=== PATIENT | female | born 1925 | race Caucasian/White ===

== ENCOUNTER → 2016-05-14 | Outpatient (CLI) | payer OTHER ==
[~2016-05-14] MED LIST: ALBUTEROL17 GM NEB; ALLOPURINOL300 MG; ALPRAZOLAM PO; ATROVENT HFA12.9 GM INH; B12 HEALTH1000 MCG/1 PO; BOSWELLIA; CINNAMON3.7 ML PO; COMBIVENT MININEB INH; COMBIVENT U/D3 M1; COQ1050 MG PO; COUMADIN PO; COUMADIN10 MG; COZAAR100 MG PO; D MANNOSE PO; D-RIBOSE1 GM; ENTOCORT EC3 MG PO; GINGER ROOT550 M1 PO; K-DUR10 MEQ PO; KCL PO; KLOR-CON PO; L-CARNITINE500 M1 PO; LASIX PO; LASIX20 MG; LASIX20 MG PO; LESCOL PO; LEVOTHYROXINE100 MCG; LOPRESSOR PO; LOSARTAN POTAS100 MG; MELATONIN1 MG PO; METFORMIN PO; NAC600 MG PO; NATTOKINASE PO; NORVASC PO; SINGULAIR PO; SLIPPERY ELM BARK PO; SPIRIVA18 MCG INH; SYMBICORT80; SYNTHROID PO; SYNTHROID88 MCG PO; ULTRA FLORA PL1 EACH; VASOTEC PO; VITAMIN C500 M5 PO; [UNRECOGNIZED DRUG - OTHER]; [UNRECOGNIZED DRUG - OTHER]; [UNRECOGNIZED DRUG - OTHER]; [UNRECOGNIZED DRUG - OTHER] PO; [UNRECOGNIZED DRUG - OTHER] PO; [UNRECOGNIZED DRUG - OTHER] PO; apple cider vinegar; nattokinase PO; tumeric PO
--- NOTE | ~2016-05-14 | MY8 ---
[facility] A Service [facility] RADIOLOGY TEXT RESULTS PATIENT: AARON ROSADO LOCATION: [facility] : [birth year] UNIT #: [id number] AGE: [address]: Marvin Page MD SEX: F ORDER DR: [id number] [facility]. [place], [place] [address] [id number] O MR#: [id number] Acc #: [id number] NAME: AARON ROSADO : 1925 SEX: F STUDY DATE/TIME: 05/14/2016 8:56 UNIT: [facility] ROOM: STUDY DESCRIPTION: MY Mammogram Dx Dig Rt Attending Physician: Marvin Page M.D. Referring Physician: Marvin Page M.D. Ordering Physician: Marvin Page M.D. Primary Care Physician: Marvin Page M.D. MEDICAL IMAGING REPORT This report is preliminary unless electronic signature is present EXAM Right digital diagnostic mammogram. INDICATIONS Right breast mass on screening mammogram. PROCEDURE True lateral view of the right breast. Spot compression views in the CC and ML projections. Images obtained on a digital mammography unit. COMPARISON Comparison screening mammogram 04/16/2016. FINDINGS Tiny asymmetries seen in the anterior right breast measuring 2 mm may represent the abnormality on the prior screening mammogram. This structure is not well placed on the spot compression views. There are no suspicious calcifications seen. There are benign vascular calcifications. Targeted right breast ultrasound in the area of mammographic abnormality demonstrates a 3 mm hypoechoic structure right breast at the 9 o'clock position 1 cm from the nipple. This has subtle increase through transmission on a few of the images. IMPRESSION 3 mm cyst in the anterior right breast. No suspicious mammographic or sonographic finding. Recommend patient continue with yearly screening. Patients over the age of 40 are entered into a reminder system with target due date for the next mammogram. A result letter will be sent to the patient. BIRADS: 2 Benign findings. [facility] A Service [facility] RADIOLOGY TEXT RESULTS PATIENT: AARON ROSADO LOCATION: [facility] : [birth year] UNIT #: [id number] AGE: [address]: Marvin Page MD SEX: F ORDER DR: Dictated by... Wesley Desia M.D. THIS IS AN ELECTRONICALLY VERIFIED REPORT Wesley Desai M.D. at 05/15/2016 10:02 AM HERBER/ryan TD: 05/14/2016 13:50 JOB #: [id number] MEDICAL IMAGING REPORT Page 1 of 1 COPY
--- NOTE | ~2016-05-14 | US24 ---
[facility] A Service of [facility] RADIOLOGY TEXT RESULTS PATIENT: AARON ROSADO LOCATION: [facility] : [birth year] UNIT #: [id number] AGE: [address]: Marvin Page MD SEX: F ORDER DR: [id number] [facility] [address] [facility]. [place], [place] [address] [id number] O MR#: [id number] Acc #: [id number] NAME: AARON ROSADO : 1925 SEX: F STUDY DATE/TIME: 05/14/2016 9:28 UNIT: [facility] ROOM: STUDY DESCRIPTION: US Breast Unilateral Attending Physician: Marvin Page M.D. Referring Physician: Marvin Page M.D. Ordering Physician: Marvin Page M.D. Primary Care Physician: Marvin Page M.D. MEDICAL IMAGING REPORT This report is preliminary unless electronic signature is present EXAM Right breast ultrasound INDICATIONS Mass on mammography PROCEDURE Targeted pan-scale and Doppler imaging of the right breast in the area of mammographic concern. COMPARISON: Concurrently performed diagnostic mammogram. FINDINGS/IMPRESSION Refer to the separately dictated diagnostic mammogram for workup findings and recommendations. BIRADS 2 - benign findings Dictated by... Wesley Desai M.D. THIS IS AN ELECTRONICALLY VERIFIED REPORT Wesley Desai M.D. at 05/15/2016 10:02 AM HERBER/sylvester TD: 05/14/2016 13:53 JOB #: [id number] MEDICAL IMAGING REPORT Page 1 of 1 COPY
== END | disposition home or self-care (01) ==
LOC: CMAM 08:15
DX: R92.8 Other abnormal and inconclusive findings on diagnostic imaging of breast (principal); N60.01 Solitary cyst of right breast
CPT/HCPCS: 76641; G0206

== ENCOUNTER → 2016-07-06 | Outpatient (CLI) | payer OTHER | END | disposition home or self-care (01) | LOC: CLAB 07:52 | DX: K27.9 Peptic ulcer, site unspecified, unspecified as acute or chronic, without hemorrhage or perforation (principal); K22.8 Other specified diseases of esophagus; R14.0 Abdominal distension (gaseous) | CPT/HCPCS: 36415; 82941 ==